=== PATIENT | female | born 1990 | race Caucasian/White ===

== ENCOUNTER 2016-09-06 21:01 | Emergency (ER) | payer MEDICAID ==
[~2016-09-06] VITALS: Ht 167.6 cm; Wt 61.2 kg
[2016-09-06 21:02] VITALS: BP_SYST 128
[2016-09-06] MEDS ORDERED: NACL 0.9% 1,000 ML IV ONE (21:20)
[2016-09-06] MEDS ORDERED: LORazepam 2 MG/ML VIAL (FOR ER USE) IVP ONE (21:30)
== END 2016-09-06 21:12 | disposition left against medical advice (07) ==
LOC: SED 21:07
DX: F10.129 Alcohol abuse with intoxication, unspecified (principal); Z88.0 Allergy status to penicillin; Z88.1 Allergy status to other antibiotic agents; Z53.20 Procedure and treatment not carried out because of patient's decision for unspecified reasons
CPT/HCPCS: 99283

== ENCOUNTER 2016-09-07 01:33 | Emergency (ER) | payer MEDICAID ==
[~2016-09-07] VITALS: Ht 167.6 cm; Wt 61.2 kg
[2016-09-07 01:33] VITALS: BP 138/86; PULSE 104; RESP 23; TEMP 98.4; O2SAT 96
--- NOTE | 2016-09-07 01:33 | NUR ---
BIB ALS ambulance with law enforcement for medical clearance. Patient to ER bed 5.
--- NOTE | 2016-09-07 01:35 | NUR ---
Pt came in ALS and with law enforcement. Pt was restrained with soft four point restraints. Pt was found across the street and stated that she wanted to hurt herself. Pt came in to ER saying onscenties and attemted to spit and attack staff. Pt did not answer any questions and was uncooperative. Dr. Moran stated to keep the pt restrained to ER bed. Pt placed in room with camera. Drawers were locked. All wires removed from room. Will continue to monitor.
--- NOTE | 2016-09-07 01:35 | NUR ---
Good CMS before and after placement in soft restraints. Law enforcement placed pt in hard wrist restraints and secured to bed. Good CMS before and after placement. Law enforcement at bedside.
[2016-09-07] MEDS ORDERED: HALOPERIDOL LACTATE 5 MG/ML VIAL IM ONE (01:45)
[2016-09-07] MEDS ORDERED: LORazepam 2 MG/ML VIAL (FOR ER USE) IM ONE (01:45)
--- NOTE | 2016-09-07 01:45 | NUR ---
ER Dr. Moran at bedside examining patient.
--- NOTE | 2016-09-07 01:45 | NUR ---
Security at bedside to gretta esquivel
[2016-09-07] MEDS ORDERED: NACL 0.9% 1,000 ML IV ONE (01:46)
--- NOTE | 2016-09-07 02:33 | NUR ---
Pt is still yelling and agitated. Good CMS in all extremities. VSS. Will continue to montor. No other injuries or complaints mentioned. No distress noted.
[2016-09-07 02:55] LABS: BASOPHILS # (AUTO) 0.1 K/uL (0.0-0.2); BASOPHILS % (AUTO) 0.6 % (0.0-2.0); EOSINOPHILS # (AUTO) 0.2 K/uL (0.0-0.4); EOSINOPHILS % (AUTO) 2.4 % (0.0-4.0); HEMATOCRIT 38.2 % (36-48); HEMOGLOBIN 13.3 g/dL (12.0-16.0); MEAN CORPUSCULAR HEMOGLOBIN 32 pg (27-31); MEAN CORPUSCULAR HGB CONC 35 % (32-36); MEAN CORPUSCULAR VOLUME 93 fL (79.0-98.0); MONOCYTES # (AUTO) 0.7 K/uL (0.0-1.0); MONOCYTES % (AUTO) 7.9 % (1.7-9.3); NEUTROPHILS % (AUTO) 67.1 % (40.0-70.0); PLATELET COUNT (AUTO) 303 K/uL (130-430); RED BLOOD CELL COUNT(AUTO) 4.11 MIL/uL (4.2-6.2); RED CELL DISTRIBUTION WIDTH 13.2 % (9.0-15.0)
[2016-09-07 03:01] LABS: ANION GAP 8 (5-15); CALCIUM 8.7 mg/dL (8.4-11.0); CHLORIDE 104 mmol/L (98-107); CREATININE 1.02 mg/dL (0.55-1.30); GFR AFRICAN AMERICAN 86 mL/min (>90); GLUCOSE 93 mg/dL (70-99); POTASSIUM 3.8 mmol/L (3.5-5.1); SODIUM SERUM 136 mmol/L (136-145); UREA NITROGEN, BLOOD 17 mg/dL (8-21)
[2016-09-07 03:05] LABS: ALANINE AMINOTRANSFERASE 28 U/L (12-78); ALBUMIN 3.9 g/dL (3.4-4.8); ALCOHOL, BLOOD 14 mg/dL (<10); ASPARTATE AMINOTRANSFERASE 28 U/L (10-37); PROTHROMBIN TIME 10.8 SECS (9.5-12.5); SALICYLATE 3 mg/dL (3-30); TOTAL BILIRUBIN 0.3 mg/dL (0.0-1.0); TOTAL PROTEIN, SERUM 7.9 g/dL (6.4-8.3)
[2016-09-07 03:08] LABS: ACETAMINOPHEN < 1 ug/mL (1-30)
--- NOTE | 2016-09-07 03:20 | NUR ---
# 20 gauge angiocath placed to R AC. Use of asceptic technique. Opsite placed over site. Blood return noted. Flushed with 10 cc of normal saline. No evidence of infiltration noted. Patient tolerated well.
--- NOTE | 2016-09-07 03:33 | NUR ---
Note undone in EDM - 09/07/16 at 0931 by DARLENE Pt is still yelling and agitated. Good CMS in all extremities. VSS. Will continue to montor. No other injuries or complaints mentioned. No distress noted.
--- NOTE | 2016-09-07 03:33 | NUR ---
Pt is sleeping soundly in bed. Good CMS in all extremities. VSS. Will continue to montor. No other injuries or complaints mentioned. No distress noted.
[2016-09-07 04:29] LABS: BILIRUBIN,URINE NEGATIVE (NEGATIVE); BLOOD, URINE NEGATIVE (NEGATIVE); CLARITY/URINE CLEAR (CLEAR); COLOR,URINE YELLOW (YELLOW); GLUCOSE,URINE NEGATIVE (NEGATIVE); KETONES,URINE NEGATIVE (NEGATIVE); LEUKOCYTE ESTERASE ,URINE NEGATIVE (NEGATIVE); NITRITE, URINE NEGATIVE (NEGATIVE); PROTEIN URINE NEGATIVE (NEGATIVE); UROBILINOGEN,URINE 0.2 (0.2-1.0)
[2016-09-07 04:40] LABS: BARBITURATE, URINE NEGATIVE (NEG <=200); BENZODIAZEPINE, URINE POSITIVE (NEG <=150); CANNABINOID, URINE NEGATIVE (NEG <=50); COCAINE, URINE NEGATIVE (NEG <=150); METHAMPHETAMINES SCREEN,URINE NEGATIVE (NEG <=500); OPIATE, URINE NEGATIVE (NEG <=100); PHENCYCLIDINE SCREEN,URINE NEGATIVE (NEG <=25); UR TRICYCLIC ANTIDEPRESSANTS NEGATIVE (NEG <=300); URINE AMPHETAMINE NEGATIVE (NEG <=500); URINE METHADONE NEGATIVE (NEG <=200); URINE OXYCODONE SCREEN NEGATIVE (NEG <=100); URINE PROPOXYPHENE SCREEN NEGATIVE (NEG <=300)
[2016-09-07 04:48] VITALS: BP 114/74; PULSE 68; RESP 20; TEMP 98.4; O2SAT 96
--- NOTE | 2016-09-07 04:48 | NUR ---
Patient given written and verbal discharge instructions and verbalizes understanding. ER MD discussed with patient the results and treatment provided. Patient in stable condition. ID arm band removed. IV catheter removed intact and dressing applied, no active bleeding. Rx of given. Patient educated on pain management and to follow up with PMD. Pain Scale 0/10. Opportunity for questions provided and answered. Discharged to [facility].
== END 2016-09-07 04:48 ==
LOC: SED 01:33
DX: G40.89 Other seizures (principal); Z88.0 Allergy status to penicillin; F31.9 Bipolar disorder, unspecified; Z88.1 Allergy status to other antibiotic agents
CPT/HCPCS: 36415; 80053; 80307; 81003; 81025; 85025; 85610; 85730; 96360; 96361; 96372; 99285; G0480; G0481; G0482; J1630; J2060; J7030